=== PATIENT | male | born 1990 | race Caucasian/White ===

== ENCOUNTER 2019-05-11 06:41 | Emergency (ER) | payer SELFPAY ==
[~2019-05-11] VITALS: Ht 177.8 cm; Wt 100.0 kg
[~2019-05-11 06:41] MED LIST: CEPHALEXIN500 M1 PO; NO HOME MEDICATIONS; SKELAXIN800 MG PO
[2019-05-11 06:45] VITALS: BP 102/78; TEMP 97.6
[2019-05-11 07:16] LABS: HEMATOCRIT 50.3 % (42.0-52.0); HEMOGLOBIN 17.7 g/dl (13.5-18.0); MEAN CELL VOLUME 83 fl (80.0-100.0); MEAN CORPUSCULAR HEMOGLOBIN 29 pg (27.0-31.0); MEAN CORPUSCULAR HGB CONC 35 g/dl (33.0-37.0); MEAN PLATELET VOLUME 10.7 fl (7.4-10.4); PLATELET COUNT 351 K/mm3 (130-400); REDCELL DISTRIBUTION WIDTH-CV 12.8 % (11.5-14.5)
[2019-05-11 07:22] LABS: ALBUMIN 4.6 gm/dL (3.5-5.0); BILIRUBIN,TOTAL 0.5 mg/dL (0.0-1.0); CALCIUM 9.1 mg/dL (8.4-10.2); CREATININE, serum 1.02 (0.66-1.25); POTASSIUM 4.4 mmol/L (3.4-5.0); TOTAL PROTEIN 7.8 gm/dL (6.4-8.2)
[2019-05-11 07:40] LABS: BAND 2 % (0-10); EOSINOPHIL 1 % (0-4); LYMPHOCYTE 39 % (20.0-51.0); METAMYELOCYTE 1 % (0-0); NEUTROPHILS 54 % (42.0-75.2); PLATELET ESTIMATE NORMAL (NORMAL)
[2019-05-11 09:04] VITALS: PULSE 94
[2019-05-11] MEDS ORDERED: INDERAL40 MG PO (10:22)
== END 2019-05-11 09:01 | disposition home or self-care (01) ==
LOC: COL.ER 06:41
PROVIDERS: Emergency Medicine
DX: I47.1 Supraventricular tachycardia (principal)
CPT/HCPCS: J0153

== ENCOUNTER 2020-11-26 07:31 | Inpatient (IN) | payer SELFPAY ==
[2020-11-26] VITALS (259 sets, daily range): BP systolic 126–139; BP diastolic 86–91; PULSE 61–86; TEMP 98.2; O2SAT 79–100
[~2020-11-26] VITALS: Ht 177.8 cm; Wt 113.6 kg
[~2020-11-26 07:31] MED LIST changes: +INDERAL40 MG PO
[2020-11-26 07:59] LABS: BASO # 0.1 (0.0-0.2); BASO % 0.4 % (0.0-2.0); EOS # 0.1 (0.0-0.7); EOS % 0.5 % (0-4.0); GRAN # 8.5 (1.4-6.5); GRAN % 66.3 % (42.2-75.2); HEMATOCRIT 48.2 % (42.0-52.0); HEMOGLOBIN 16.7 g/dl (13.5-18.0); LYMPH # 3.3 (1.2-3.4); LYMPH % 25.5 % (20.0-51.0); MEAN CELL VOLUME 80 fl (80.0-100.0); MEAN CORPUSCULAR HEMOGLOBIN 28 pg (27.0-31.0); MEAN CORPUSCULAR HGB CONC 35 g/dl (33.0-37.0); MEAN PLATELET VOLUME 10.3 fl (7.4-10.4); MONO # 0.9 (0.1-0.6); MONO % 6.7 % (1.7-9.3); PLATELET COUNT 406 K/mm3 (130-400); RED BLOOD COUNT 6.05 M/mm3 (4.20-5.60); REDCELL DISTRIBUTION WIDTH-CV 12.9 % (11.5-14.5)
[2020-11-26 08:03] LABS: PROTHROMBIN TIME 11.4 SECONDS (9.7-12.8)
[2020-11-26 08:06] LABS: ALANINE AMINOTRANSFERASE 45 U/L (4-49); ALBUMIN 4.8 gm/dL (3.5-5.0); ALKALINE PHOSPHATASE 86 U/L (50-136); AST,SGOT 46 U/L (15-37); BILIRUBIN,TOTAL 0.7 mg/dL (0.0-1.0); BLOOD UREA NITROGEN 16 mg/dL (9-20); CALCIUM 9.8 mg/dL (8.4-10.2); CARBON DIOXIDE 20 mmol/L (22-30); CREATININE, serum 1.28 (0.66-1.25); GLUCOSE 143 mg/dL (74-106); POTASSIUM 4.5 mmol/L (3.4-5.0); SODIUM 140 mmol/L (137-145); TOTAL PROTEIN 8.5 gm/dL (6.4-8.2)
[2020-11-26 08:18] LABS: TROPONIN-I 0.022 ng/mL (0.000-0.035)
[2020-11-26 08:30] LABS: MAGNESIUM 1.9 mg/dL (1.6-2.3)
[2020-11-26 08:34] LABS: CHLORIDE 105 mmol/L (98-107)
[2020-11-26 08:35] LABS: ANION GAP 15 mmol/L (7-16); C-REACTIVE PROTEIN < 0.5 mg/dL (0.0-0.9)
[2020-11-26 09:20] LABS: THYROID STIMULATING HORMONE 6.4 uIU/mL (0.465-4.680)
--- NOTE | 2020-11-26 19:30 | NUR ---
Received report from ANOOP Sosa. Patient resting quietly in bed. Patient's mother at bedside. All vitals within normal limits; he denies any pain or discomfort. No further needs noted.
[2020-11-27] VITALS (310 sets, daily range): BP systolic 125–130; BP diastolic 75–86; PULSE 53–77; TEMP 98.2–98.3; O2SAT 83–100
--- NOTE | 2020-11-27 00:45 | NUR ---
Patient exhibited approximately 60-second run of SVT with rate 140-150s. [facility] hospitalist, within ICU at time of run. Patient laying on right side upon entering room. He self-converted to sinus rhythm immediately after rolling into supine position. Patient states he often feels tachycardic episodes upon laying in right-side position. Instructed patient to avoid right-side positioning for the time being. BP remained within normal limits. Will continue to monitor.
[2020-11-27 06:20] LABS: BASO % 0.2 % (0.0-2.0); EOS # 0.1 (0.0-0.7); EOS % 0.9 % (0-4.0); GRAN # 5.8 (1.4-6.5); GRAN % 66.1 % (42.2-75.2); HEMATOCRIT 41.5 % (42.0-52.0); LYMPH # 2.2 (1.2-3.4); LYMPH % 25.1 % (20.0-51.0); MEAN CELL VOLUME 81 fl (80.0-100.0); MEAN CORPUSCULAR HGB CONC 34 g/dl (33.0-37.0); MEAN PLATELET VOLUME 10.7 fl (7.4-10.4); MONO # 0.7 (0.1-0.6); MONO % 7.5 % (1.7-9.3); RED BLOOD COUNT 5.11 M/mm3 (4.20-5.60)
[2020-11-27 06:24] LABS: HEMOGLOBIN 14.2 g/dl (13.5-18.0); MEAN CORPUSCULAR HEMOGLOBIN 28 pg (27.0-31.0); PLATELET COUNT 202 K/mm3 (130-400)
[2020-11-27 06:27] LABS: CREATININE, serum 0.95 (0.66-1.25)
[2020-11-27 06:47] LABS: TROPONIN-I 0.118 ng/mL (0.000-0.035)
--- NOTE | 2020-11-27 09:57 | NUR ---
Center Mgr met with patient and his mother, Suzanne (ph#[phone]) to discuss discharge planning. Patient lives in [place] with his partner, Maurice and sees Dr. Carter at [facility] [place] for primary care. Patient also obtains medications from [facility] as he states they are more affordable than going to any local pharmacy. Patient does not use any DME and is independent with [facility]. Patient does not have Advance Directives and is not interested in designating DPOA-HC at this time. Patient is not and states his next of kin would be his mother, Suzanne. Patient plans to return home upon discharge. Patient is self pay and completed Financial Assistance Application. SW returned the completed FAA to [facility] [employer]. Discharge Plan: Home
--- NOTE | 2020-11-27 10:24 | NUR ---
Initial visit; Patient and his family thanked [employer] for looking in on [facility] and offering God's blessings.
[2020-11-27] MEDS ORDERED: TOPROL XL200 MG PO (10:38)
--- NOTE | 2020-11-27 11:11 | NUR ---
PT has no complaints. Steady gait. Monitor shows sinus rhythm before disconnection. PT understands education and follow up appointment. PT discharged with mom at 1111
== END 2020-11-27 11:11 | disposition home or self-care (01) | DRG 310 ==
LOC: COL.ER 07:31 → ICU 12:10
PROVIDERS: Emergency Medicine; ADMIT Student in an Organized Health Care Education/Training Program
DX: I47.1 Supraventricular tachycardia (principal); I45.6 Pre-excitation syndrome; R79.89 Other specified abnormal findings of blood chemistry; I10 Essential (primary) hypertension; E03.9 Hypothyroidism, unspecified; R77.8 Other specified abnormalities of plasma proteins; Z87.891 Personal history of nicotine dependence
CPT/HCPCS: 99222-AI; 99239; J0153; J0282; J2060; J2405; J7030; J7060